=== PATIENT | male | born 1970 | race Caucasian/White ===

== ENCOUNTER 2025-06-19 18:54 | Emergency (ER) | payer MEDICARE, MEDICAID, SELFPAY ==
[2025-06-19 18:54] VITALS: BP 151/80; PULSE 86; RESP 20; TEMP 35.9; O2SAT 98; BMI 38.5
[2025-06-19 19:00] VITALS: BP 166/81; PULSE 88; RESP 20; TEMP 35.9; O2SAT 99
--- NOTE | 2025-06-19 19:10 | EKG12_ITS ---
Test Reason : DYSRHYTHMIA Blood Pressure : */* mmHG Vent. Rate : 88 BPM Atrial Rate : 88 BPM P-R Int : 142 ms QRS Dur : 92 ms QT Int : 402 ms P-R-T Axes : 20 70 51 degrees QTcB Int : 486 ms Normal sinus rhythm Nonspecific ST abnormality QTcB >= 480 msec Abnormal ECG Confirmed by ROSALBA NICK, MARI ([id number]), map editor KELLEN ALDANA ([id number]) on 06/22/2025 6:49:21 AM Referred By: ROBYN Confirmed By: MARI NAVARRETE MD
--- NOTE | 2025-06-19 19:20 | ED.VIS.CHEST ---
HPI History of Present Illness Chief Complaint: Chest Pain Narrative Narrative: Chief complaint and HPI: 55-year-old male with past medical history of HTN, depression presents for evaluation of chest pain. Patient states he was sitting in a basketball game when he developed left-sided chest pain. He describes it as sharp. He was given 4 baby aspirin by EMS and brought to the emergency department. Associated symptom is nausea and vomiting. He denies any abdominal pain. He denies any fever, chills, shortness of breath. Denies any history of CAD. Non-smoker. Review of systems: See HPI Medications: As listed on the chart Allergies: As listed on the chart PFSH: Per chart Vital signs: As listed on the chart. Reviewed. Physical exam: Gen: A&O x3 Head: Normocephalic, atraumatic Eyes: No sclera icterus, conjunctiva clear ENT: Moist mucous membranes Neck: Trachea midline, No JVD CV: RRR, no murmurs, no peripheral edema, radial pulses +2, chest pain nonreproducible Resp: Lungs CTA BL, no w/r/c GI: Abd soft, non-distended, non-tender, no r/r/g Musc: Full ROM, no deformity Skin: Warm, diaphoretic [facility] PFS Allergy/AdvReac Type Severity Reaction Status Date / Time Unable to Assess Allergy Verified 06/19/25 19:01 Social History Smoking Status: Former smoker EXAM Physical Exam Const Vital Signs: 06/19/25 18:54 06/19/25 19:00 06/19/25 19:00 Temperature 96.7 F L 96.7 F L Temperature Source Axillary Axillary Pulse Rate 86 88 Respiratory Rate 20 H 20 H Respiratory Effort Short of Breath Blood Pressure 151/80 H 166/81 H Blood Pressure Mean 103 109 Pulse Ox 98 99 Oxygen Delivery Method Room Air Room Air 06/19/25 20:00 Temperature Temperature Source Pulse Rate 91 Respiratory Rate 16 Respiratory Effort Blood Pressure 171/62 H Blood Pressure Mean 98 Pulse Ox 97 Oxygen Delivery Method Room Air MDM MDM MDM Narrative Medical decision making narrative: 55-year-old male with past medical history of HTN, depression presents for evaluation of chest pain. Patient states he was sitting in a basketball game when he developed left-sided chest pain. He describes it as sharp. He was given 4 baby aspirin by EMS and brought to the emergency department. states has been ongoing for about 30 minutes. Associated symptom is nausea and vomiting. He denies any abdominal pain. On presentation, patient is diaphoretic and uncomfortable secondary to pain. Differential diagnosis includes but is not limited to ACS, NSTEMI, dissection, PE, electrolyte abnormality, dehydration, arrhythmia, intra-abdominal process although patient not having abdominal pain. NS bolus, morphine, Zofran ordered for symptoms. EKG reviewed. Chest pain workup ordered including CTA chest to assess for dissection. Patient went immediately to the CT scanner to rule out dissection. I received a call from the environmental health technician stating that they saw an abnormality in the abdomen in which I told them to add on CT abdomen and pelvis. I personally received a phone call from the radiologist. CTA negative for dissection or PE. However patient has a large left retroperitoneal hemorrhage collection with internal foci of active arterial bleeding, most likely originating from an underlying left adrenal myolipoma. Innumerable bilateral small simple appearing renal cysts, and multiple small nonobstructive bilateral renal stones. No hydronephrosis. Given this finding, I suspect patient will need interventional radiology will reach out to [facility] for transfer. Patient and family was updated of the results and plan. Patient still endorsing abdominal pain. IV Dilaudid ordered. Patient's vital signs are currently stable other than hypertension. While waiting for [facility] Transfer line, I did consult our general surgeon, Dr. Berumen. He looked at the imaging. Agrees that patient needs interventional radiology emergently and that patient needs to be immediately transferred. I did discuss with him about giving blood prophylactically at this time, recommended holding off given vitals are stable. I spoke with the critical care team at [facility], patient will be airlifted. Him and his confirmed understanding of the plan. CBC shows leukocytosis of 15.7. Patient has anemia with hemoglobin 9.5. I do not have previous labs to compare to therefore I do not know if this is acute. Platelets unremarkable. CMP shows mild hypokalemia of 3.1. Will hold off on p.o. replacement at this time given patient needs to be n.p.o. for interventional radiology. No transaminitis. Lipase unremarkable. Troponin unremarkable. BNP unremarkable. Patient is hyperglycemic at 230. Coagulation panel and type and screen pending at this time. EKG: Interpreted by me/EM physician: EKG shows normal sinus rhythm with nonspecific ST changes. Patient has elevated QTc at 486. Impression: 1. Large left retroperitoneal hemorrhage with internal foci of active arterial bleeding 2. Anemia 3. Mild hypokalemia Lab Data Labs: Laboratory Results - last 24 hr 06/19/25 19:07 WBC 15.7 H RBC 3.68 L Hgb 9.5 L Hct 29.1 L MCV 79.1 L MCH 25.8 L MCHC 32.6 RDW Std Deviation 39.8 RDW Coeff of Amanda 14.1 Plt Count 250 MPV 8.3 Immature Gran % (Auto) 1.900 H Neut % (Auto) 66.8 Lymph % (Auto) 19.7 [place] % (Auto) 8.9 Eos % (Auto) 2.4 Baso % (Auto) 0.3 Absolute Neuts (auto) 10.5 H Absolute Lymphs (auto) 3.09 Nucleated RBC % 0 PT Cancelled INR Cancelled APTT Cancelled Sodium 140 Potassium 3.1 L Chloride 107 Carbon Dioxide 19.1 L Anion Gap 14 BUN 10 Creatinine 0.94 Estim Creat Clear Calc 114.88 Est GFR (MDRD) Non-Af 96 BUN/Creatinine Ratio 10.4 Glucose 230 H Calcium 8.4 Magnesium 1.8 Total Bilirubin 0.16 AST 24 ALT 32 Alkaline Phosphatase 63 Troponin T High Sens 17 NT pro BNP II 174 Total Protein 6.3 Albumin 3.6 Globulin 2.7 Albumin/Globulin Ratio 1.4 Lipase 73 Radiography Diagnostic Testing: Clinical Impression(s) from Imaging Studies Chest CTA 06/19/25 19:25 IMPRESSION: 1. Large left retroperitoneal hemorrhage collection with internal foci of active arterial bleeding; most likely originating from an underlying left adrenal myelolipoma. 2. No acute intrathoracic abnormality. No aortic aneurysm or dissection. 3. Innumerable bilateral small simple appearing renal cysts, and multiple small nonobstructive bilateral renal stones. No hydronephrosis on either side. 4. Additional ancillary findings/details, as described above. Red Alert: The critical findings above were relayed directly by me via telephone to Krishan Borja on 06/19/2025 at 6:35 pm with readback verification. Reading Location: [id number] Abdomen/Pelvis CT 06/19/25 19:28 IMPRESSION: 1. Large left retroperitoneal hemorrhage collection with internal foci of active arterial bleeding; most likely originating from an underlying left adrenal myelolipoma. 2. No acute intrathoracic abnormality. No aortic aneurysm or dissection. 3. Innumerable bilateral small simple appearing renal cysts, and multiple small nonobstructive bilateral renal stones. No hydronephrosis on either side. 4. Additional ancillary findings/details, as described above. Red Alert: The critical findings above were relayed directly by ok via telephone to Krishan Borja on 06/19/2025 at 6:35 pm with readback verification. Reading Location: [facility] Discharge Plan Triage Chief Complaint: Chest Pain ED Provider: Krishan Borja Dx/Rx/DC Orders Primary Care Provider: SERG STONE Referrals: SERG STONE CRNP [Primary Care Provider, Family Practice] Print Language: Persian
--- NOTE | 2025-06-19 19:28 | CT_ITS ---
PROCEDURE: CTA CHEST W/WO CONTRAST; ABDOMEN/PELVIS W IV CONT ONLY 06/19/2025 REASON FOR EXAM: DISSECTION, CHEST PAIN; LUQ PAIN TECHNIQUE: Procedure Code: [id number]; [id number] Modality: CT Procedure: CTA CHEST W/WO CONTRAST; ABDOMEN/PELVIS W IV CONT ONLY Multiplanar Sagittal and Coronal images were obtained. 3D post processing was performed. CONTRAST: Isovue 370 VOLUME: 96 mL One or more dose reduction techniques were used (e.g., Automated exposure control, adjustment of the mA and/or kV according to patient size, use of iterative reconstruction technique). RADIATION DOSE SUMMARY: DLP: 2436.98 mGycm COMPARISON: None available. FINDINGS: AORTA: Normal in course and caliber. No aneurysm or dissection. Mild atherosclerotic disease. Major branch vessels are patent, normal in caliber without any acute abnormality. PULMONARY VESSELS: Normal caliber. No pulmonary arterial emboli. LUNGS/PLEURA: Clear. No pneumothorax or pleural effusion. MEDIASTINUM: Unremarkable. No lymphadenopathy. HEART: Normal in size. No pericardial effusion or coronary artery calcification. HEPATOBILIARY: Mild diffuse hepatic steatosis. Status post cholecystectomy. Normal size and morphology of the spleen. Unremarkable pancreas. No ductal dilatation. GENITOURINARY: Normal size kidneys. Innumerable bilateral small simple appearing renal cysts. Several bilateral small subcentimeter nonobstructive renal stones and/or vascular calcifications. No ureteral calculi or hydroureteronephrosis on either side. Unremarkable urinary bladder. Mildly enlarged prostate. Normal right adrenal gland. No normal left adrenal gland visualized and there is a complex mass with active left retroperitoneal hemorrhage originating from the left suprarenal region, discussed below. GI TRACT: No evidence of obstruction or active inflammatory process. Normal appendix. Mild distal colonic diverticulosis without evidence for active diverticulitis. PERITONEUM/RETROPERITONEUM: Ill-defined complex mass with internal fat density foci in the left suprarenal region measuring roughly 5.3 cm, most likely reflecting a left adrenal myelolipoma, complicated by superimposed acute large left retroperitoneal hemorrhage, with a large complex hematoma collection tracking inferiorly from the left suprarenal space. There is internal active arterial contrast extravasation with pooling on delayed venous phase imaging. Vascular supply from small left suprarenal branch arteries. There is some associated mass-effect with slight inferior displacement of the left kidney. MUSCULOSKELETAL: Mild multilevel degenerative changes of the spine. CT/Abdomen/Pelvis W IV Cont ONLY IMPRESSION: 1. Large left retroperitoneal hemorrhage collection with internal foci of activ e arterial bleeding; most likely originating from an underlying left adrenal myelolipoma. 2. No acute intrathoracic abnormality. No aortic aneurysm or dissection. 3. Innumerable bilateral small simple appearing renal cysts, and multiple small nonobstructive bilateral renal stones. No hydronephrosis on either side. 4. Additional ancillary findings/details, as described above. Red Alert: The critical findings above were relayed directly by me via telephone to Krishan Hernandez on 06/19/2025 at 6:35 pm with readback verification. Reading Location: [id number]
[2025-06-19 19:34] LABS: Hematocrit 29.1 % (40-54); Hemoglobin 9.5 g/dL (13.0-16.5); Immature Granulocytes Count 0.300 X10^3/uL (0.0-0.0); Mean Corp Hgb Conc 32.6 g/dL (32-36); Mean Corpuscular Volume 79.1 fL (80-94); Mean Platelet Vol. 8.3 fl (6.2-12.0); NRBC Flagged by Analyzer 0 % (0-5); Platelet Count 250 K/mm3 (150-450); RBC Distribution Width CV 14.1 % (11.6-14.6); RBC Distribution Width SD 39.8 fl (35.1-43.9); Red Blood Count 3.68 M/mm3 (4.6-6.2); White Blood Count 15.7 K/mm3 (4.4-11.0)
[2025-06-19] MEDS: 0.9% Normal Saline (1000mL) 1,000 ML 999 ML IV (19:48)
[2025-06-19 19:57] LABS: AST(SGOT) 24 U/L (<=37); Alanine Aminotransfer ALT/SGPT 32 U/L (<=46); Albumin, Serum 3.6 g/dL (3.5-5.0); Alkaline Phosphatase 63 U/L (40-129); Anion Gap 14 (5-15); BUN 10 mg/dL (4-19); BUN/Creat Ratio 10.4 RATIO (10-20); Calcium,Total 8.4 mg/dL (7.6-11.0); Carbon Dioxide 19.1 mmol/L (21.0-32.0); Chloride 107 mmol/L (98-108); Estimated Creatinine Clearance 114.88 ml/min (50-250); Globulin 2.7 g/dL (2.2-4.2); Glucose 230 mg/dL (70-99); Lipase 73 U/L (13-75); Magnesium 1.8 mg/dL (1.5-2.2); Potassium 3.1 mmol/L (3.3-5.1); Pro- Brain NATRIURETIC PEPTIDE 174 pg/mL (<=900); Troponin T High Sensitivity 17 ng/L (<=22)
[2025-06-19 20:00] VITALS: BP 171/62; PULSE 91; RESP 16; O2SAT 97
[2025-06-19 20:24] VITALS: BP 157/78; PULSE 89; RESP 17; TEMP 36.1; O2SAT 95
--- NOTE | 2025-06-19 20:45 | ED.RN ---
[facility] at bedside
[2025-06-19 22:29] LABS: Prothrombin Time (Protime)PT. 15.5 SECONDS (11.7-14.9)
[2025-06-19 22:30] LABS: Partial Thromboplast Time 28.7 Seconds (24.1-36.2)
== END 2025-06-19 21:02 | disposition short-term general hospital (02) ==
PROVIDERS: Emergency Provider Surgery; PCP Nurse Practitioner Adult Health; Visit Provider Surgery
DX: K68.3 Retroperitoneal hematoma (principal); D64.9 Anemia, unspecified; E87.6 Hypokalemia
CPT/HCPCS: 71275; 74177; 80053; 82962; 83690; 83735; 83880; 84484; 85025; 85610; 85730; 86850; 86900; 86901; 86920; 86922; 93005; 96361; 96374; 96375; 96376; 99285; P9016; Q9967; A4216; J2405